=== PATIENT | male | born 1965 | race Two or more races ===

== ENCOUNTER 2016-10-24 14:33 | Emergency (ER) | payer OTHER ==
[~2016-10-24] VITALS: Ht 170.2 cm; Wt 81.2 kg
[2016-10-24] MEDS ORDERED: NKM (14:51)
[2016-10-24] MEDS ORDERED: IBUPROFEN600 MG ORAL (16:12)
[2016-10-24] MEDS ORDERED: ACETAMINOPHEN-1 EAC1 ORAL (16:12)
[2016-10-24 16:21] VITALS: BP 147/98
--- NOTE | 2016-10-24 16:28 | Diagnostic Imaging Report ---
Indication: Pain Findings: 3 views of the left elbow were obtained. No definite fracture is identified. Alignment is normal. There is a small linear osseous focus near the radial head seen only on the lateral view. This is probably artifact. Impression: Negative exam
--- NOTE | 2016-10-24 22:34 | Emergency Room Report ---
History of Present Illness General Chief Complaint: Upper Extremity Injury Source: Patient Present Illness HPI 51-year-old male presents to ED complaining of left elbow pain x5 days. States he was lifting a heavy trashcan and while attempting to throw it dumpster he felt sharp pain in his left elbow. States that he has been resting the elbow and taking ibuprofen but states the pain is persisting. Pain is 8 at 10, throbbing, nonradiating. Worse with flexion and extension. No other aggravating or relieving factors. Denies any other injuries. Denies any other associated symptoms Allergies: Coded Allergies: No Known Allergies (Unverified , 10/24/16) Patient History Past Medical History: HTN, psych hx Pertinent Family History: none Social History: Denies: alcohol use, drug use, smoking Immunizations: UTD Reviewed Nursing Documentation: PMH: Agreed, PSxH: Agreed Nursing Documentation-PMH Past Medical History: No History, Except For Hx Hypertension: Yes History Of Psychiatric Problem: Yes - Anxiety, depression Review of Systems All Other Systems: negative except mentioned in HPI Physical Exam Vital Signs Date Time Temp Pulse Resp B/P Pulse Ox O2 Delivery O2 Flow Rate FiO2 10/24/16 14:46 97.9 70 16 154/102 97 Room Air Sp02 EP Interpretation: reviewed, normal General Appearance: no apparent distress, alert, GCS 15, non-toxic Head: normocephalic Eyes: bilateral eye PERRL, bilateral eye normal inspection ENT: normal ENT inspection Neck: normal inspection Respiratory: normal inspection Cardiovascular #1: normal inspection Gastrointestinal: normal inspection Rectal: deferred Genitourinary: no CVA tenderness Musculoskeletal: tender - L elbow over lateral condyle. no deformity/bruising Neurologic: alert, oriented x3, responsive, motor strength/tone normal, sensory intact, speech normal Psychiatric: anxious Skin: normal inspection Lymphatic: normal inspection Procedures Splinting Splinting : Consent: Verbal Pre-Made Type: GIOVANNI wrap - Left elbow Pre-Proc Neuro Vasc Exam: normal Post-Proc Neuro Vasc Exam: normal Patient Tolerated: Well Complications: None Medical Decision Making Diagnostic Impression: Primary Impression: Elbow injury Qualified Codes: S59.902A - Unspecified injury of left elbow, initial encounter ER Course Hospital Course 51-year-old M presents to ED complaining of L elbow pain Differential diagnoses include: Fracture, dislocation, sprain, contusion Clinical course Patient placed on stretcher. After initial history and physical, I ordered xrays of L elbow Xrays read shows no acute fracture/dislocation; however there is a linear osseous focus near radial head. Questionable artifact as per radiologist While patient was waiting for x-ray results he was walking through the ER. He was asked kindly by one of the ER nurses to wait near his bedside as private patient information is being discussed. Patient became immediately upset started screaming yelling at the nurse. I calmly explained to the patient why the nurse asked him to go back to his bedside as private information was been discussed. Patient became irritated and screaming. Patient was asked once more to lower his voice and he became calm thereafter. My clinical exam is consistent with lateral epicondylitis (tennis elbow). Placed in giovanni wrap, given sling Diagnosis - elbow injury Stable and discharged to home with prescription for Motrin. apply ice, keep elevated. weight bear as tolerated. Followup with PMD. Return to ED if symptoms recur or worsen Other X-Ray Diagnostic Results Other X-Ray Diagnostic Results : X-Ray Ordered: Left elbow EP Interpretation: No Findings: no fractures, no dislocation, no soft tissue swelling, other - linear osseus focus near radial head Number of Views: 3 Last Vital Signs Date Time Temp Pulse Resp B/P Pulse Ox O2 Delivery O2 Flow Rate FiO2 10/24/16 16:21 97.9 71 16 147/98 97 Room Air Status: improved Disposition: HOME, SELF-CARE Condition: Stable Scripts Acetaminophen With Codeine (T#3) (TYLENOL #3 TAB*) Y Tab 1 TAB ORAL Q8H Y for For Pain, #20 TAB Prov: LALI FINCH M.D. 10/24/16 Ibuprofen* (MOTRIN*) 600 Mg Tablet 600 MG ORAL Q8H Y for For Pain, #30 TAB 0 Refills Prov: LALI FINCH M.D. 10/24/16 Referrals: CHANTELL GARCIA [facility],REFERRING (PCP) Patient Instructions: Elbow Fracture, Simple LALI FINCH M.D. October 24, 2016 22:34
== END 2016-10-24 16:33 | disposition home or self-care (01) ==
LOC: EMR 16:21
DX: S59.902A Unspecified injury of left elbow, initial encounter (principal); X50.0XXA Overexertion from strenuous movement or load, initial encounter; Y93.9 Activity, unspecified; Y92.9 Unspecified place or not applicable; I10 Essential (primary) hypertension; Z86.59 Personal history of other mental and behavioral disorders
CPT/HCPCS: 29260; 99284

== ENCOUNTER 2017-10-22 17:39 | Emergency (ER) | payer MEDICAID, OTHER ==
[~2017-10-22] VITALS: Ht 170.2 cm; Wt 81.6 kg
[~2017-10-22 17:39] MED LIST: ACETAMINOPHEN-1 EAC1 ORAL; IBUPROFEN600 MG ORAL; NKM
[2017-10-22 17:43] VITALS: BP 153/91
[2017-10-22 18:35] LABS: BASOPHILS % (AUTO) 2.2 % (0.0-2.0); EOSINOPHILS % (AUTO) 6.3 % (0.0-3.0); HEMATOCRIT 39.7 % (42.0-52.0); LYMPHOCYTES % (AUTO) 30.8 % (20.0-45.0); MEAN CORPUSCULAR VOLUME 95 FL (80-99); MONOCYTES % (AUTO) 12.5 % (1.0-10.0); NEUTROPHILS % (AUTO) 48.2 % (45.0-75.0); PLATELET COUNT 153 K/UL (150-450); RED BLOOD COUNT 4.18 M/UL (4.70-6.10); RED CELL DISTRIBUTION WIDTH 11.8 % (11.6-14.8); WHITE BLOOD COUNT 4.3 K/UL (4.8-10.8)
[2017-10-22 18:36] LABS: ANION GAP 9 mmol/L (5-15); BLOOD UREA NITROGEN 13 mg/dL (7-18); CALCIUM 8.3 MG/DL (8.5-10.1); CARBON DIOXIDE 26 MMOL/L (21-32); CHLORIDE 105 MMOL/L (98-107); CREATININE 0.8 MG/DL (0.55-1.30); POTASSIUM 3.8 MMOL/L (3.5-5.1); SODIUM 140 MMOL/L (136-145)
[2017-10-22 18:41] LABS: ALANINE AMINOTRANSFERASE 139 U/L (12-78); ALBUMIN 3.5 G/DL (3.4-5.0); ALBUMIN/GLOBULIN RATIO 0.8 (1.0-2.7); ALKALINE PHOSPHATASE 70 U/L (46-116); ASPARTATE AMINO TRANSFERASE 157 U/L (15-37); BILIRUBIN,TOTAL 0.4 MG/DL (0.2-1.0)
[2017-10-22 18:50] LABS: APPEARANCE,URINE CLEAR; BILIRUBIN, URINE NEGATIVE (NEGATIVE); GLUCOSE, URINE (UA) NEGATIVE (NEGATIVE); KETONES,URINE NEGATIVE (NEGATIVE); LEUKOCYTE ESTERASE ,URINE NEGATIVE (NEGATIVE); NITRITE,URINE NEGATIVE (NEGATIVE); PH,URINE 6 (4.5-8.0); PROTEIN,URINE 1+ (NEGATIVE); UROBILINOGEN,URINE NORMAL MG/DL (0.0-1.0)
[2017-10-22 18:51] LABS: COLOR,URINE YELLOW
--- NOTE | 2017-10-22 19:55 | Emergency Room Report ---
History of Present Illness General Chief Complaint: Abdominal Pain Source: Patient, Medical Record Present Illness HPI Patient states that he has had intermittent abdominal pain for the past few months. He states that he also has noticed his abdomen is larger. He admits that he has heavy alcohol use and abuse for the past 20 years. He drinks on average 2 bottles of wine per day. He denies fever or chills. He denies nausea or vomiting. He denies chest pain or shortness of breath. He has no other complaints. Allergies: Coded Allergies: No Known Allergies (Unverified , 10/24/16) Patient History Past Medical History: HTN, other - ETOH abuse/dependence Social History: Reports: alcohol use; Denies: smoking, drug use Reviewed Nursing Documentation: PMH: Agreed; PSxH: Agreed Nursing Documentation-PMH Past Medical History: No History, Except For Hx Hypertension: Yes Review of Systems All Other Systems: negative except mentioned in HPI Physical Exam Vital Signs Date Time Temp Pulse Resp B/P (MAP) Pulse Ox O2 Delivery O2 Flow Rate FiO2 10/22/17 17:43 98.3 75 18 153/91 95 Room Air 98.2 Sp02 EP Interpretation: reviewed, normal General Appearance: no apparent distress, alert, GCS 15, non-toxic Head: normocephalic, atraumatic Eyes: bilateral eye normal inspection, bilateral eye PERRL ENT: hearing grossly normal, normal pharynx, no angioedema, normal voice Neck: full range of motion, supple/symm/no masses Respiratory: chest non-tender, lungs clear, normal breath sounds, speaking full sentences Cardiovascular #1: regular rate, rhythm, no edema Gastrointestinal: normal bowel sounds, non tender, soft, non-distended, no guarding, no rebound, hepatomegaly Rectal: deferred Musculoskeletal: back normal, gait/station normal, normal range of motion, non- tender Neurologic: alert, oriented x3, responsive, motor strength/tone normal, sensory intact, speech normal Psychiatric: judgement/insight normal, memory normal, mood/affect normal, no suicidal/homicidal ideation Skin: normal color, no rash, warm/dry, well hydrated Medical Decision Making Diagnostic Impression: Primary Impression: Transaminitis Additional Impressions: Hepatomegaly ETOH abuse EtOH dependence ER Course This patient has known alcohol abuse and dependence. He has had an enlarging abdomen. He is found to have hepatomegaly and transaminitis. I suspect this patient is developing alcoholic liver disease. Ultrasound of the right upper quadrant shows a fatty and large liver. Also an enlarged pancreas. This is consistent with his history of heavy alcohol use and dependence. The patient was educated that he would need to see a archeologist classical and his primary care physician for monitoring of this. I also educated him that he should get further labs to include hepatitis panel. He was educated on the dangers of ongoing alcohol abuse and dependence. He was offered alcohol rehabilitation resources but he declined at this time. Otherwise, the patient's evaluation is benign. I did not identify an emergency medical condition. The patient is given return precautions and follow-up instructions. The patient eloped without his discharge paperwork. Laboratory Tests Test 10/22/17 18:15 10/22/17 18:26 White Blood Count 4.3 K/UL (4.8-10.8) L Red Blood Count 4.18 M/UL (4.70-6.10) L Hemoglobin 14.0 G/DL (14.2-18.0) L Hematocrit 39.7 % (42.0-52.0) L Mean Corpuscular Volume 95 FL (80-99) Mean Corpuscular Hemoglobin 33.5 PG (27.0-31.0) H Mean Corpuscular Hemoglobin Concent 35.2 G/DL (32.0-36.0) Red Cell Distribution Width 11.8 % (11.6-14.8) Platelet Count 153 K/UL (150-450) Mean Platelet Volume 5.8 FL (6.5-10.1) L Neutrophils (%) (Auto) 48.2 % (45.0-75.0) Lymphocytes (%) (Auto) 30.8 % (20.0-45.0) Monocytes (%) (Auto) 12.5 % (1.0-10.0) H Eosinophils (%) (Auto) 6.3 % (0.0-3.0) H Basophils (%) (Auto) 2.2 % (0.0-2.0) H Sodium Level 140 MMOL/L (136-145) Potassium Level 3.8 MMOL/L (3.5-5.1) Chloride Level 105 MMOL/L (98-107) Carbon Dioxide Level 26 MMOL/L (21-32) Anion Gap 9 mmol/L (5-15) Blood Urea Nitrogen 13 mg/dL (7-18) Creatinine 0.8 MG/DL (0.55-1.30) Estimate Glomerular Filtration Rate > 60 mL/min (>60) Glucose Level 100 MG/DL (74-106) Calcium Level 8.3 MG/DL (8.5-10.1) L Total Bilirubin 0.4 MG/DL (0.2-1.0) Aspartate Amino Transferase (AST) 157 U/L (15-37) H Alanine Aminotransferase (ALT) 139 U/L (12-78) H Alkaline Phosphatase 70 U/L (46-116) Total Protein 7.7 G/DL (6.4-8.2) Albumin 3.5 G/DL (3.4-5.0) Globulin 4.2 g/dL Albumin/Globulin Ratio 0.8 (1.0-2.7) L Lipase 186 U/L (73-393) Urine Color Yellow Urine Appearance Clear Urine pH 6 (4.5-8.0) Urine Specific [place] 1.015 (1.005-1.035) Urine Protein 1+ (NEGATIVE) H Urine Glucose (UA) Negative (NEGATIVE) Urine Ketones Negative (NEGATIVE) Urine Occult Blood 1+ (NEGATIVE) H Urine Nitrite Negative (NEGATIVE) Urine Bilirubin Negative (NEGATIVE) Urine Urobilinogen Normal MG/DL (0.0-1.0) Urine Leukocyte Esterase Negative (NEGATIVE) Urine RBC 2-4 /HPF (0 - 0) H Urine WBC 0-2 /HPF (0 - 0) Urine Squamous Epithelial Cells None /LPF (NONE/OCC) Urine Bacteria Few /HPF (NONE) Urine Opiates Screen Negative (NEGATIVE) Urine Barbiturates Screen Negative (NEGATIVE) Phencyclidine (PCP) Screen Negative (NEGATIVE) Urine Amphetamines Screen Negative (NEGATIVE) Urine Benzodiazepines Screen Negative (NEGATIVE) Urine Cocaine Screen Negative (NEGATIVE) Urine Marijuana (THC) Screen Negative (NEGATIVE) CT/MRI/US Diagnostic Results CT/MRI/US Diagnostic Results : Imaging Test Ordered: Abd US Impression Hepatomegaly. Fatty liver. Enlarged pancreas. See official report. Last Vital Signs Date Time Temp Pulse Resp B/P (MAP) Pulse Ox O2 Delivery O2 Flow Rate FiO2 10/22/17 17:43 98.3 75 18 153/91 95 Room Air 98.3 Disposition: HOME, SELF-CARE Condition: Improved Referrals: NOT CHOSEN [facility]/,REFERRING (PCP) VIRAL BOLTON D.O. October 22, 2017 19:55
[2017-10-22 20:10] VITALS: BP 150/88
== END 2017-10-22 20:10 | disposition home or self-care (01) ==
LOC: EMR 18:09
DX: R74.0 Nonspecific elevation of levels of transaminase and lactic acid dehydrogenase [LDH] (principal); R16.0 Hepatomegaly, not elsewhere classified; F10.20 Alcohol dependence, uncomplicated; I10 Essential (primary) hypertension
CPT/HCPCS: 36415; 76700; 80053; 80307; 81003; 83690; 85025; 99284

== ENCOUNTER 2018-08-10 11:18 | Emergency (ER) | payer SELFPAY ==
[~2018-08-10] VITALS: Ht 170.2 cm; Wt 81.6 kg
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
--- NOTE | 2018-08-10 11:48 | NUR ---
ED Nurse Note: Xray at the bed side.
--- NOTE | 2018-08-10 12:14 | Diagnostic Imaging Report ---
EXAM: XR Left Foot Complete, 3 or More Views CLINICAL HISTORY: Left foot trauma TECHNIQUE: Frontal, lateral and oblique views of the left foot. COMPARISON: No relevant prior studies available. FINDINGS: Bones/joints: Minimally displaced comminuted fractures of the distal heads of the third and fourth metatarsals. No other fracture or dislocation identified. Visualized joint spaces appear unremarkable. Soft tissues: Soft tissue swelling overlying the forefoot. No radiodense foreign bodies. No soft tissue gas lucencies. IMPRESSION: 1. Minimally displaced comminuted fractures of the distal heads of the third and fourth metatarsals. 2. Soft tissue swelling overlying the forefoot.
--- NOTE | 2018-08-10 12:34 | NUR ---
ED Nurse Note: Dr Mitchell ordered Posterior splint on left foot and crutches.
[2018-08-10] MEDS ORDERED: IBUPROFEN600 MG ORAL (12:48)
[2018-08-10 13:02] VITALS: BP 145/90
--- NOTE | 2018-08-10 13:02 | NUR ---
ED Nurse Note: Pt cleared by health care provider for discharge. Pt refused posterior splint and crutches. MD notified and orderd cast shoe. DC instructions/prescription was given and explained to pt and verbalized understanding of teachings. All medical affairs director such as ID band removed. Pt is AAO x4, ambulatory and left with all personal belongings.
== END 2018-08-10 13:02 | disposition home or self-care (01) ==
LOC: EMR 11:30
DX: S92.332A Displaced fracture of third metatarsal bone, left foot, initial encounter for closed fracture (principal); S92.342A Displaced fracture of fourth metatarsal bone, left foot, initial encounter for closed fracture; V13.4XXA Pedal cycle driver injured in collision with car, pick-up truck or van in traffic accident, initial encounter; Y93.55 Activity, bike riding; Y92.410 Unspecified street and highway as the place of occurrence of the external cause
CPT/HCPCS: 29515; 99283